=== PATIENT | female | born 1945 | race Caucasian/White ===

== ENCOUNTER → 2016-11-11 | Day surgery (SDC) | payer OTHER ==
--- NOTE | 2016-11-03 17:27 | MH ---
cc: JERAMIE MCRAE DATE OF ADMISSION 11/11/2016 1947. REASON FOR ADMISSION Cystocele repair HISTORY OF PRESENT ILLNESS The patient is a 70-year-old white female 2, para 2 who has had issues with pelvic prolapse that is causing issues with pelvic pressure and discomfort. She has declined pessary use or vaginal estrogen. She wants to proceed with repair. The patient also had issue with postmenopausal bleeding. She had an ultrasound that showed a stripe of 2 mm. The patient's medical history also notable for rheumatoid arthritis. She takes methotrexate, but her last dose was approximately two weeks ago. Otherwise medical history is negative for heart, lung, liver disease, hypertension, diabetes or stroke. PAST SURGICAL HISTORY Tubal ligation OBSTETRICAL HISTORY Two vaginal deliveries. GYNECOLOGIC HISTORY No STDs or abnormal Pap smears. ALLERGIES None. MEDICATIONS 1. Methotrexate 2.5 mg q. day, last dose was two weeks ago. 2. Folic acid 1 mg daily, 3. Diclofenac 50 mg t.i.d. p.r.n. FAMILY HISTORY Noncontributory. REVIEW OF SYSTEMS As above. No chest pain, orthopnea, PND. No nausea, vomiting or chills. No vaginal bleeding or discharge. N change in bladder or bowel habits. PHYSICAL EXAMINATION VITAL SIGNS: She is afebrile, vitals signs stable. Blood pressure is 150/70, height 5 feet 1 inch, weight 117, BMI is 22. GENERAL: Patient is alert and oriented in stress no sign of cognitive dysfunction or depression. HEENT: Within normal limits. NECK: Supple. No JVD. CHEST: Clear. HEART: Regular rate and rhythm. ABDOMEN: Soft, nontender. No hepatosplenomegaly. No CVA tenderness. PELVIC: Exam in the office shows pop Q score Aa a 0, Ap is -1, point C is -5, total vaginal length is 10, genital hiatus is five. Perineal body is 5, reflexes are normal, levator strength is 2/5. Further exam under anesthesia. EXTREMITIES: Normal skin without rashes NEUROLOGIC: Nonfocal. No DVT signs. IMAGING STUDIES Normal ultrasound with 2 mm endometrial stripe. ASSESSMENT Patient with pelvic organ prolapse stage II. We have discussed options for management and treatment. At this point, she wants to proceed with cystocele repair. She is aware of the risks, benefits and alternatives of the planned procedure including damage to surrounding organs, bleeding, infection, failure of repair, dyspareunia and other issues germane to the procedure. She is also aware that there may be some pelvic floor issues that are not obvious in the office and we may, at her request, repair any issues identified under anesthesia. At this point, we anticipate outpatient procedure. She will use antibiotic prophylaxis 2 grams Ancef and DVT prophylaxis sequential compression device. MD DHIRAJ Machado/ /5:05 PM /5:16 PM
[~2016-11-11] VITALS: Ht 154.9 cm; Wt 49.9 kg
[~2016-11-11] MED LIST: CHLORHEXIDINE GLUCONATE 2 % 1 PACK (2 CLOTHS) TOPICAL PRN; CHOL5000 PO; DEXAMETHASONE SOD PHOS 4 MG/ML VIAL ONE; DICL50TA PO; DO NOT ADM ANY ANTICOAGULANT DRUGS PRN; ESTROGENS CONJUGATED VAG CREA 15 APPL/30 GM TUBE ONE; FAMOTIDINE 20 MG/2 ML VIAL ONE; FLUORESCEIN SOD 10% SOLN 500 MG/5 ML AMP ONE; FOLI1TAB4 PO; FOLI1TAB6 PO; INSULIN HUMAN REGULAR 1,000 UNITS/10 ML VIAL SQ PRN; KETOROLAC TROMETHAMINE 10 MG TAB PO PRN; KETOROLAC TROMETHAMINE 30 MG/ML (IVP) VIAL IV PUSH PRN; KETOROLAC TROMETHAMINE 60 MG/2 ML (IM) VIAL IM ONE; LACTATED RINGER'S 1000 ML INJ 1,000 ML IV ONE; LACTATED RINGER'S 1000 ML IV PRN; LIDOCAINE 1%/EPINEPHrine 1:100,000 SOLN 20 ML VIAL ONE; METH2.5T PO; METHYLENE BLUE 10 MG/ML VIAL OTHER ONE; METOPROLOL TARTRATE 25 MG TAB PO PRN; MIDAZOLAM HCL 2 MG/2 ML VIAL ONE; ONDANSETRON HCL 4 MG/2 ML VIAL IV PRN; ONDANSETRON HCL 4 MG/2 ML VIAL IV PUSH ONE; POVIDONE IODINE 5% (ANTISEPSIS KIT) 4 APPLICATIONS EACH NARE PRN; PROPOFOL 200 MG/20 ML AMP IV ONE; SODIUM CHLORID 0.9% 500 ML IV PRN; ceFAZolin 2 GM PREMIX 50 ML IV SCH
[2016-11-11 06:56] VITALS: BP 144/75; PULSE 76; RESP 16; TEMP 97.9; O2SAT 100
[2016-11-11 09:40] VITALS: TEMP 96.4
[2016-11-11 10:45] VITALS: BP 129/70; PULSE 83; RESP 18; O2SAT 100
--- NOTE | 2016-11-11 20:15 | EKG ---
Date Performed: 11/11/2016 Time Performed: 07:21:42 PTAGE: 71 years EKG: Sinus rhythm WITH SINUS ARRHYTHMIA WITH FIRST DEGREE AV BLOCK ABNORMAL ECG ARTIFACT NO PREVIOUS TRACING DOCTOR: Miranda Padilla Interpretating Date/Time 11/11/2016 20:14:55
--- NOTE | 2016-11-13 10:17 | MP ---
cc: JONATAN MCRAE MD DATE OF SURGERY: 11/11/2016 PREOPERATIVE DIAGNOSIS: Cystocele. POSTOPERATIVE DIAGNOSES 1. Cystocele, stage 3 2. Rectocele stage 2 3. Uterine prolapse stage 2 PROCEDURE 1. Anterior/posterior repair. 2. Extraperitoneal hysteropexy 3. Diagnostic cystoscopy SURGEON Jonatan Mcrae MD. ANESTHESIA General endotracheal BLOOD LOSS 20 cc URINE OUTPUT 100 cc. BODY DESIGNER: Cecil staff x2 FLUIDS: 1000 cc crystalloid FINDINGS External genitalia poorly estrogenized pop Q score Aa is +2, Ap is +1, point C is -2, total vaginal length is 10. General hiatus is 6. Perineal body is 3. Rectal exam normal prior to repair. Following repair Aa -3, Ap -3, point C is -8, total vaginal length is 10. General hiatus is 4. Perineal body is 4. Rectal exam normal. Cystoscopy following repair shows normal trigone good coaptation of urethra. Ureteral orifices patent x2. Dome base of bladder normal. SPECIMENS Vaginal mucosa anterior-posterior COMPLICATIONS None DISPOSITION AND PLAN Stable needle, sponge count correct. Drains Apple catheter antibiotic prophylaxis Ancef 2 grams DVT prophylaxis, sequential compression device. Time-out procedure per protocol. SUMMARY/INDICATIONS PROCEDURE: The patient with symptomatic pelvic organ prolapse. PROCEDURE: The patient taken operating rectum and prepped and draped in a fashion appropriate for procedure. She is in dorsal lithotomy position with careful attention paid to placement of legs in stirrups to avoid undue stress to sensitive neurovascular structures. Above findings noted. Neurovascularly intact, documented. Apple catheter was placed methylene blue was instilled into the bladder. Under anesthesia. She had the patient had more of a significant posterior compartment defect. We appreciated prior in the office she had predominately anterior compartment defect and some degree of uterine prolapse as well. We decided to start on the anterior compartment. We infiltrated the vaginal mucosa with epinephrine lidocaine solution made a midline incision from the cervical os to the presently 1 cm from the urethral meatus. We reflected the paravesical tissues, there is no spilled methylene blue with dissection. Anterior repair performed in standard fashion with absorbable suture. Vaginal mucosa was trimmed and then the mucosa was closed with a running locking suture 2-0 Vicryl. The patients posterior compartment repair was performed in standard fashion infiltrating here with epinephrine lidocaine solution made a midline incision from the hymen to the cervical vaginal junction reflected the rectal tissues. There was an enterocele noted which was addressed with pursestring type sutures. The perirectal tissues were imbricated with delayed absorbable suture. A vaginal cuff was trimmed the cervix was elevated in extraperitoneal approach with absorbable suture. Vaginal mucosa was trimmed, FloSeal was used. Hemostatic matrix was used for added hemostasis to obviate the need for packing vaginal cuff was closed with a running locking 2-0 Vicryl suture. The above findings noted after repair. The cystoscopy was performed using 17-Jamaican bridge and a 70 degrees scope. The patient received 1 cc of fluorescein IV. Ureteral patency was documented by green urine from each side. There is no damage to the bladder appreciated. Rectal exam confirmed no damage to the rectum, the procedure was concluded after assuring hemostasis of suture line. The patient tolerated well to recovery room stable condition. She meets criteria after the voiding trial. She will be discharged home. MD DHIRAJ Machado/alexx /9:30 AM /10:09 AM LINDSAY
== END | disposition home or self-care (01) ==
LOC: HSDC 05:54
PROVIDERS: ATTEND Obstetrics & Gynecology Gynecology
DX: N81.10 Cystocele, unspecified (principal); N81.6 Rectocele; N81.2 Incomplete uterovaginal prolapse; N76.1 Subacute and chronic vaginitis; N95.0 Postmenopausal bleeding; M06.9 Rheumatoid arthritis, unspecified; I49.8 Other specified cardiac arrhythmias; I44.0 Atrioventricular block, first degree
CPT/HCPCS: 00942; 57265; 88302; 93005; J0690; J1100; J1885; J2250; J2405; J3010; J7120